=== PATIENT | male | born 1965 | race American Indian/Alaskan Native ===

== ENCOUNTER 2019-10-27 14:07 | Emergency (ER) | payer OTHER ==
[2019-10-27 15:46] LABS: Basophils # (Auto) 0.1 K/mm3 (0.0-0.1); Basophils % (Auto) 0.6 % (0.0-1.8); Eosinophils % (Auto) 0.3 % (0.0-4.3); Hemoglobin 16.9 gm/dl (11.8-15.2); Lymphocytes # (Auto) 2.3 K/mm3 (1.2-5.4); Lymphocytes % (Auto) 25.6 % (13.4-35.0); Mean Corpuscular HGB Conc 34 % (32-34); Mean Corpuscular Volume 90 fl (84-94); Monocytes # (Auto) 0.8 K/mm3 (0.0-0.8); Monocytes % (Auto) 8.5 % (0.0-7.3); Platelet Count 397 K/mm3 (140-440); Red Blood Count 5.45 M/mm3 (3.65-5.03)
[2019-10-27 16:00] LABS: INR 1.07 (0.87-1.13)
[2019-10-27 16:01] LABS: Partial Thromboplastin Time 28.2 Sec. (24.2-36.6)
[2019-10-27 16:04] LABS: Alanine Aminotransferase 52 units/L (7-56); Albumin 4.6 g/dL (3.9-5); BUN/Creatinine Ratio 13; Blood Urea Nitrogen 15 mg/dL (9-20); Calcium 9.6 mg/dL (8.4-10.2); Hemolysis Index 22
[2019-10-27 21:34] VITALS: BP 148/100
== END 2019-10-27 22:01 | disposition home or self-care (01) ==
LOC: ED 14:07
DX: E86.0 Dehydration (principal); K92.0 Hematemesis; I10 Essential (primary) hypertension; Z98.890 Other specified postprocedural states
CPT/HCPCS: 36415; 80053; 82271; 83690; 85025; 85610; 85730; 96365; 96375; 99284; C9113; J2405; J3411; J7030; 96367